=== PATIENT | male | born 1985 | race African-American/Black ===

== ENCOUNTER 2020-02-18 19:53 | Emergency (ER) | payer MEDICAID, OTHER ==
[2020-02-18] MEDS ORDERED: Fluorescein 1 MG Ophth Strip EYERT ONE (20:08)
[2020-02-18] MEDS ORDERED: Erythromycin Base 0.5% Ophth Oint 1 GM Tube EYERT ONE (20:33)
--- NOTE | 2020-02-18 20:40 | EDM.PDOC ---
ED HPI GENERAL MEDICAL PROBLEM - General Chief Complaint: Eye Problems Stated Complaint: RT EYE PAIN Time Seen by Provider: 02/18/20 19:56 Source of Information: Reports: Patient History Limitations: Reports: No Limitations - History of Present Illness INITIAL COMMENTS - FREE TEXT/NARRATIVE: This is a 34-year-old male. He was walking outside around 1:45 PM today when he got something in his right eye. The wind was blowing and he was not sure if something blew into his eye. His vision became somewhat blurry his eye was hurting and he tried to wash the eye out at home but he continues to have irritation of that right eye. He denies any other acute symptoms. Even though his vision is blurry he does not think it is really changed. Right Eye Pain Score (Numeric/FACES): 3 - Related Data Allergies Allergy/AdvReac Type Severity Reaction Status Date / Time No Known Allergies Allergy Verified 02/18/20 20:05 Home Meds: Home Meds . [No Known Home Meds] 02/18/20 [History] Past Medical History - Past Health History Medical/Surgical History: Denies Medical/Surgical History Social & Family History - Tobacco Use Smoking Status *Q: Current Every Day Smoker Years of Tobacco use: 12 Packs/Tins Daily: 0.1 - Caffeine Use Caffeine Use: Reports: None - Recreational Drug Use Recreational Drug Use: No ED ROS GENERAL - Review of Systems Review Of Systems: See Below Constitutional: Reports: No Symptoms HEENT: Reports: Eye Pain Respiratory: Reports: No Symptoms Cardiovascular: Reports: No Symptoms Endocrine: Reports: No Symptoms GI/Abdominal: Reports: No Symptoms : Reports: No Symptoms Musculoskeletal: Reports: No Symptoms Skin: Reports: No Symptoms Neurological: Reports: No Symptoms Psychiatric: Reports: No Symptoms Hematologic/Lymphatic: Reports: No Symptoms ED EXAM GENERAL W FULL EYE - Physical Exam Exam: See Below Exam Limited By: No Limitations General Appearance: Alert, WD/WN, No Apparent Distress Eye Exam: Right Eye: Other (Right eye some mild inflammation noted. I everted the lower lid and upper lid and wiped it with a Q-tip there was no foreign body noted. I looked with a ophthalmoscope at the cornea there is no obvious foreign body seen in the anterior chamber is clear. I used fluorescene stain in the right eye and it does show a corneal abrasion rather large like the tip of an eraser of a pencil in the 10 and 11 o'clock position at the periphery of the cornea. He also has an abrasion of the sclera in that area as well. No other acute findings and no foreign body on the cornea.), Left Eye: Normal Inspection Eyelids: Bilateral: Normal Appearance Conjunctiva & Sclera: Right: Injected Cornea Exam: Right: Corneal Abrasion Extraocular Movements: Bilateral: Intact Pupillary Size: Bilateral: 3 mm Pupillary Reaction: Bilateral: Brisk Anterior Chamber: Bilateral: Normal Appearance Ears: Normal External Exam Nose: Normal Inspection Throat/Mouth: Normal Lips, Normal Voice, No Airway Compromise Head: Normocephalic Neck: Supple Respiratory/Chest: No Respiratory Distress Back Exam: Full Range of Motion Extremities: Normal Inspection, Normal Range of Motion Neurological: Alert, Oriented Psychiatric: Normal Affect, Normal Mood Skin Exam: Warm, Dry Course - Vital Signs Last Recorded V/S: Last Vital Signs Temp 98 F 02/18/20 20:02 Pulse 86 02/18/20 20:02 Resp 16 02/18/20 20:02 BP 133/93 H 02/18/20 20:02 Pulse Ox 98 02/18/20 20:02 - Orders/Labs/Meds Meds: Medications Discontinued Medications Generic Name Dose Route Start Last Admin Trade Name Freq PRN Reason Stop Dose Admin Erythromycin 1 gm 02/18/20 20:33 Erythromycin 0.5% Ophth Oint EYERT 02/18/20 20:34 ONETIME ONE Fluorescein Sodium 1 mg 02/18/20 20:08 02/18/20 20:16 Ful-Nahed EYERT 02/18/20 20:09 1 mg ONETIME ONE Administration Departure - Departure Time of Disposition: 20:42 Disposition: Home, Self-Care 01 Condition: Good Clinical Impression: Right corneal abrasion Qualifiers: Encounter type: initial encounter Qualified Code(s): S05.01XA - Injury of conjunctiva and corneal abrasion without foreign body, right eye, initial e ncounter - Discharge Information *PRESCRIPTION DRUG MONITORING PROGRAM REVIEWED*: Not Applicable *COPY OF PRESCRIPTION DRUG MONITORING REPORT IN PATIENT MANNY: Not Applicable Instructions: Corneal Abrasion, [id number] Referrals: PCP,None [Primary Care Provider] - Additional Instructions: Wear the eye patch for 24 hours, when you take it off Thursday evening do not rub your eye with your fingers, get some artificial tears [facility] use them as a lubricant for the eye irritation, so use the drops instead of rubbing your eye. If you rub your eye with your fingers you will continue the abrasion, follow-up with your family doctor as needed. Sepsis Event Note (ED) - Evaluation Sepsis Screening Result: No Definite Risk - Focused Exam Vital Signs: Vital Signs Temp Pulse Resp BP Pulse Ox 02/18/20 20:02 98 F 86 16 133/93 H 98
== END 2020-02-18 20:49 | disposition home or self-care (01) ==
LOC: JD.ED 19:53
DX: S05.01XA Injury of conjunctiva and corneal abrasion without foreign body, right eye, initial encounter (principal); F17.210 Nicotine dependence, cigarettes, uncomplicated; W45.8XXA Other foreign body or object entering through skin, initial encounter
CPT/HCPCS: 99283; A9270; 99282